=== PATIENT | female | born 1960 | race Caucasian/White ===

== ENCOUNTER → 2017-08-14 | Outpatient (CLI) | payer OTHER ==
[~2017-08-14] VITALS: Ht 160 cm; Wt 71.7 kg
[~2017-08-14] MED LIST: EXCEDRIN MIGRA1 EAC3 PO; FIBER500 MG PO; FISH OIL 1,0001 EAC7 PO; GLUCOSAMINE &1 EAC1 PO; TYLENOL EXTRA500 MG PO
== END | disposition home or self-care (01) ==
LOC: AMB 07:29
PROC: 0TF3XZZ Fragmentation in Right Kidney Pelvis, External Approach (ICD-10-PCS; principal; 2017-08-14)
DX: N20.0 Calculus of kidney (principal); Z88.1 Allergy status to other antibiotic agents
CPT/HCPCS: 74021; J1100; J1885; J2250; J2405; J3010